=== PATIENT | male | born 1990 | race Caucasian/White ===

== ENCOUNTER 2018-01-22 21:26 | Emergency (ER) | payer OTHER ==
[~2018-01-22] VITALS: Ht 170.2 cm; Wt 106.6 kg
[2018-01-23] MEDS ORDERED: ETOMIDATE (2MG/ML) 20ML VIAL IV ONE ×2 (00:15→01:30)
[2018-01-23] MEDS ORDERED: LORazepam 2MG/ML-1ML VIAL ONE ×2 (00:47→01:08)
[2018-01-23] MEDS ORDERED: LORazepam 2MG/ML-1ML VIAL IV ONE ×2 (03:15)
[2018-01-23 03:29] VITALS: BP 121/71
== END 2018-01-23 03:50 | disposition home or self-care (01) ==
LOC: ER 21:26
DX: S43.005A Unspecified dislocation of left shoulder joint, initial encounter (principal); W18.39XA Other fall on same level, initial encounter; Y93.66 Activity, soccer; Y99.8 Other external cause status; Y92.89 Other specified places as the place of occurrence of the external cause
CPT/HCPCS: 23650; 73020; 73030; 96374; 99291; J2060; A4565